=== PATIENT | male | born 1965 | race Caucasian/White ===

== ENCOUNTER 2017-04-04 04:07 | Observation (INO) | payer BC ==
[2017-04-04] MEDS ORDERED: Nitroglycerin TAB 0.4 MG* 0.4 MG TAB SL PRN (04:23)
[2017-04-04] MEDS ORDERED: Aspirin Low Dose CHEW TAB* 81 MG PO ONE (04:23)
[2017-04-04 04:39] LABS: Hematocrit 42 % (42-52); Mean Corpuscular HGB Conc 33 g/dl (31-36); Mean Corpuscular Hemoglobin 30 pg (27-31); Mean Corpuscular Volume 90 fL (80-94); Mean Platelet Volume 8 um3 (7.4-10.4); Red Blood Count 4.66 10^6/ul (4.0-5.4); Red Cell Distribution Width 14 % (10.5-15); White Blood Count 7.4 10^3/ul (3.5-10.8)
[2017-04-04 04:51] LABS: Albumin 4.2 g/dL (3.2-5.2); BUN/Creatinine Ratio 16.1 (8-20); Calcium 9.5 mg/dL (8.6-10.3); EGFR African American 83.7 (>60); EGFR Non-African American 65.1 (>60); Globulin 2.8 g/dL (2-4); Magnesium 1.9 mg/dL (1.9-2.7); Total Bilirubin 0.5 mg/dL (0.2-1.0)
[2017-04-04 05:55] LABS: Potassium 3.8 mmol/L (3.5-5.0)
--- NOTE | 2017-04-04 06:22 | ED ---
I, Oh,Sogini, scribed for Mars Petersen MD on 04/04/17 at 0424 . HPI Chest Pain - HPI Summary HPI Summary: This 52 y/o male presents to ED for midsternal CP since 0200 AM tonight. Positive left arm and shoulder pain since the last morning. ASA and APAP were taken without much relief. PMHx includes HTN and right kidney transplant in 1999. He does not have left kidney. Pt is smoker and daily drinker x3-4. Primary care involves Dr. Tijerina. - History of Current Complaint Hx Obtained From: Patient, Family/Labor Utilization Superintendent - present at bedside, Medical Records Onset/Duration: Started Hours Ago, Atraumatic, Still Present Timing: Constant Chest Pain Location: Diffuse Chest Pain Radiates: No Character: Dull/Aching Aggravating Factor(s): Nothing Alleviating Factor(s): Nothing Associated Signs and Symptoms: Positive: Chest Pain, Other: - LUE shoulder and arm pain - Allergy/Home Medications Allergies/Adverse Reactions: Allergies Allergy/AdvReac Type Severity Reaction Status Date / Time Ibuprofen Allergy Unknown See Comment Verified 04/04/17 04:29 Home Medications: Home Medications Aspirin 81 MG TAB 1 tab PO DAILY 04/04/17 [History Confirmed 04/04/17] PMH/Surg Hx/FS Hx/Imm Hx Endocrine/Hematology History: Denies: Hx Diabetes, Hx Thyroid Disease Cardiovascular History: Reports: Hx Hypertension - controlled Denies: Hx Pacemaker/ICD Respiratory History: Denies: Hx Asthma, Hx Chronic Obstructive Pulmonary Disease (COPD) GI History: Denies: Hx Ulcer History: Reports: Hx Renal Disease - ONLY 1KIDNEY Sensory History: Reports: Hx Hearing Aid Psychiatric History: Denies: Hx Panic Disorder - Surgical History Surgery Procedure, Year, and Place: R kidney transplant 1999, no left kidney; ganglion cyst right wrist Infectious Disease History: Denies: Hx Clostridium Difficile, Hx Hepatitis, Hx Human Immunodeficiency Virus (HIV), Hx of Known/Suspected MRSA, Hx Shingles, Hx Tuberculosis, Hx Known/ Suspected VRE, Hx Known/Suspected VRSA, History Other Infectious Disease - Family History Known Family History: Negative: Diabetes - Social History Alcohol Use: Weekly Alcohol Amount: 1-2 per night, beer Substance Use Type: Reports: None Smoking Status (MU): Never Smoked Tobacco Type: Smokeless Tobacco Amount Used/How Often: one tin every 3 wks Have You Smoked in the Last Year: No Review of Systems Negative: Fever Positive: Chest Pain Positive: Other - LUE shoulder and arm pain All Other Systems Reviewed And Are Negative: Yes Physical Exam Triage Information Reviewed: Yes Vital Signs Reviewed: Yes Appearance: Positive: Well-Appearing, No Pain Distress Skin: Positive: Warm Head/Face: Positive: Normal Head/Face Inspection ENT: Positive: Hearing grossly normal Neck: Positive: Supple Respiratory/Lung Sounds: Positive: Clear to Auscultation, Breath Sounds Present Cardiovascular: Positive: RRR Abdomen Description: Positive: Nontender, Soft Bowel Sounds: Positive: Present Musculoskeletal: Positive: Strength/ROM Intact Neurological: Positive: Sensory/Motor Intact, Alert, Oriented to Person Place, Time, Normal Gait Psychiatric: Positive: Affect/Mood Appropriate Diagnostics - Laboratory Result Diagrams: 04/04/17 04:15 04/04/17 04:15 Lab Statement: Any lab studies that have been ordered have been reviewed, and results considered in the medical decision making process. - Radiology CXR Radiology Interpretation Completed By: ED Physician - See EMR for official reading - EKG 0413 Cardiac Rate: NL EKG Rhythm: Sinus Bradycardia Re-Evaluation - Re-Evaluation First Eval Re-Evaluation Time: 06:35 Change: Improved Comment: MD in room to update pt on plan of care involving admission for further workup such as stress test. Chest Pain Course/Dx - Course Assessment/Plan: This 52 y/o male presents to ED for acute onset of midsternal CP since 0200 AM tonight. Positive LUE shoulder and arm pain since yesterday. Pt recently just established primary care with Dr. Tijerina, but has not done any cardiac workup recently. CXR and EKG are noted normal. Blood work is wnl with 0.00 trop but elevated creatinine of 1.12. Plan of care involving admission and further cardiac workup with stress test is discussed with Dr. Mancini, hospitalist finish production manager, and pt is accepted for admission. - Diagnoses Provider Diagnoses: Chest pain - Provider Notifications Discussed Care Of Patient With: Marquis Mancini Time Discussed With Above Provider: 06:34 Instructed by Provider To: Admit As Inpatient Discharge - Discharge Plan Condition: Fair Disposition: ADMITTED TO [facility] Referrals: Uziel Tijerina MD [Primary Care Provider] - The documentation as recorded by the Richard wylie Soohyun accurately reflects the service I personally performed and the decisions made by me, Mars Petersen MD.
--- NOTE | 2017-04-04 08:00 | RAD ---
HISTORY: Chest pain COMPARISONS: November 04, 2010 VIEWS: 4: Frontal dual-energy and lateral views of the chest. FINDINGS: CARDIOMEDIASTINAL SILHOUETTE: The cardiomediastinal silhouette is normal. LAKEISHA: The lakeisha are normal. PLEURA: The costophrenic angles are sharp. No pleural abnormalities are noted. LUNG PARENCHYMA: The lungs are clear. ABDOMEN: The upper abdomen is clear. There is no subphrenic gas. BONES AND SOFT TISSUES: No bone or soft tissue abnormalities are noted. OTHER: None. IMPRESSION: NO ACTIVE CARDIOPULMONARY DISEASE.
[2017-04-04 08:58] LABS: HDL Cholesterol 58.6 mg/dL
[2017-04-04] MEDS ORDERED: Mycophenolate Mofetil TAB(*) 500 MG PO SCH (09:00)
[2017-04-04] MEDS ORDERED: CHLORPHENIRAMINE PHENYLEPHRINE PO SCH (09:00)
[2017-04-04] MEDS ORDERED: amLODIPine TAB* 5 MG PO SCH (09:00)
[2017-04-04] MEDS ORDERED: [UNRECOGNIZED DRUG - OTHER] PO SCH (09:00)
[2017-04-04] MEDS ORDERED: predniSONE TAB* 5 MG PO SCH (09:00)
[2017-04-04] MEDS ORDERED: Aspirin Low Dose CHEW TAB* 81 MG PO SCH (09:00)
--- NOTE | 2017-04-04 10:05 | HP ---
CC: Dr. Tijerina * HISTORY AND PHYSICAL: DATE OF ADMISSION: 04/04/17 PRIMARY CARE PROVIDER: Dr. Tijerina. CHIEF COMPLAINT: Chest pain. HISTORY OF PRESENT ILLNESS: Mr. Linares is a 52-year-old male who woke up yesterday morning with complaint of left lateral chest pain as well as left arm and shoulder discomfort. He described this as a constant pressure feeling as if somebody had a foot constantly on his chest. He has noted that it felt hard to breathe. He states the pain got better as the day progressed. He mowed his lawn on a riding pediatric speech language pathologist. He worked on his truck. He states that he felt the discomfort the entire day; however, by evening, it was not as bad as it was in the morning. He went to bed at the usual time. He awakened at approximately 2 a.m. and described having severe pain in the left side of the chest. He states he got up, he took some Tylenol and sat on a chair. He notes about an hour later it felt somewhat better; however, he again complained of shortness of breath and numbness and tingling in his arm. He continued to have pressure in his chest. At that point, he asked his girlfriend to bring him to the emergency room. The patient does state that he was on recent vacation. His travel included traveling out to [facility]. He has never had anything like this in the past. He has never had a cardiac workup in the past. PAST MEDICAL HISTORY: 1. History of nephrotic syndrome, status post renal transplant in 1999. 2. Hypertension. PAST SURGICAL HISTORY: 1. Renal transplant. 2. Ganglion cyst removal. MEDICATIONS: 1. Prednisone 5 mg p.o. daily. 2. Amlodipine 10 mg p.o. daily. 3. CellCept 500 mg p.o. b.i.d. 4. Celexa 10 mg p.o. q.h.s. 5. Norel AD 1 tab p.o. b.i.d. 6. Aspirin 81 mg p.o. daily. ALLERGIES: No known drug allergies. FAMILY HISTORY: Mother at the age of 70. She had coronary artery disease , diabetes, kidney disease. Dad at age 65. He had throat cancer. SOCIAL HISTORY: The patient does not smoke cigarettes, but he does use chewing tobacco. He drinks 2 to 3 alcoholic beverages on average per day. 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 He has 2 children. His girlfriend, Jessica, would be his healthcare proxy. REVIEW OF SYSTEMS: A complete 11-system review of systems was obtained. Pertinent positives and negatives are as per HPI and otherwise negative. PHYSICAL EXAMINATION GENERAL: The patient is a well-developed, middle-aged male, lying on a stretcher, in no acute distress. VITAL SIGNS: Blood pressure 110/81, pulse 56, respirations 16, temp 98.3, O2 sat 97% on room air. HEENT: Pupils are equal. They are round. They react to light. Extraocular muscles are intact. Oropharynx is clear. Oral mucosa is moist. The patient does have chewing tobacco in his mouth at this time. There is no submandibular , cervical or supraclavicular adenopathy. Thyroid is not enlarged. No thyroid nodules noted. PULMONARY: Lungs are clear to auscultation bilaterally. CARDIAC: Normal S1, S2. Regular rate and rhythm. I did not appreciate any murmurs. The patient is quite tender to palpation over the left lateral chest wall. ABDOMEN: Bowel sounds are present. Abdomen is soft, nontender, nondistended. The patient's transplanted kidney is in the right lower quadrant. MUSCULOSKELETAL: There is no cyanosis or clubbing of the digits. There is full active range of motion of all 4 extremities. NEUROLOGIC: Cranial nerves II through XII are grossly intact. Sensation is intact to light touch throughout. Strength is 5/5 and symmetric in both upper extremities and lower extremities bilaterally. SKIN: Warm and dry. There are no rashes. PSYCH: The patient is alert. He is oriented x3. Affect appears appropriate. DIAGNOSTIC STUDIES/LAB DATA: WBC 7.4, hemoglobin 14.0, hematocrit 42, platelets 290. INR 0.82. Sodium 137, potassium 3.8, chloride 99, CO2 of 28, BUN 19, creatinine 1.18, glucose 105, lactic acid 0.5. Calcium 9.5, magnesium 1.9, bilirubin 0.5, AST 26, ALT 12, alk phos 67, troponin 0, albumin 4.2. EKG reveals normal sinus rhythm without any acute ST-T wave abnormalities though there is an inverted T-wave in lead III, which is essentially unchanged from 2015. Chest x-ray on my review appears to be clear bilaterally, without any infiltrates or evidence of edema. ASSESSMENT AND PLAN: Mr. Linares is a 52-year-old male with history of renal transplant in 1999, maintained on immunosuppressive therapy, hypertension, and use of chewing tobacco, who presents to the emergency room with complaints of chest pain. 1. Chest pain: My suspicion is that the patient's chest pain is in fact musculoskeletal. He was quite tender to palpation over the left lateral chest wall. He does not recall any trauma to the area, however. The patient's MARILEE risk score, however, is 2. The patient will be admitted, ruled out for an acute coronary syndrome, again, which is unlikely, and then undergo exercise nuclear stress test. The patient is in agreement with this plan. The patient will be n.p.o. as of now. I am hopeful that he can get the stress test later this morning. 2. Hypertension: The patient's blood pressure is under good control on his usual dose of the amlodipine. We will continue this. 3. History of renal transplant: The patient will continue on his usual doses of prednisone, CellCept, and Norel. His girlfriend will bring in his Norel. 4. Deep venous thrombosis prophylaxis. According to the Adult Thrombosis Prophylaxis Risk Factor Assessment Guide, the patient has a total risk factor score of 2, making him moderate risk. He will have ambulation for DVT prophylaxis only as I suspect he will be discharged home later today. 5. Code status is full and, again, the patient indicates his girlfriend, Jessica, is his healthcare proxy. TIME SPENT: Fifty-five minutes were spent admitting this patient. [id number]/[facility] #: [id number] CARLO
--- NOTE | 2017-04-04 14:21 | RAD ---
Edited for charges. Indication: Evaluate for ischemia. Myocardial perfusion scan was performed utilizing 1 day protocol. Rest myocardial perfusion was performed after intravenous injection of 10.6 mCi of technetium 99m tetrofosmin. Treadmill stress study was performed and the maximum heart rate achieved was 92% of the maximum predicted value. 25.7 mCi of technetium 99 and tetrofosmin was then injected. There is homogeneous distribution of the radiotracer throughout the left ventricle. No evidence of fixed or reversible perfusion defect is identified. The ejection fraction at stress is 68 %. Evaluation of wall motion demonstrates no focal wall motion abnormality. IMPRESSION: No definite fixed or reversible perfusion defect is identified. Normal ejection fraction. ASSESSMENT: Low risk Based on imaging criteria from ACC/AHA 2002 Guideline Update for the Management of Patients With Chronic Stable Angina Table 23. Noninvasive Risk Stratification. Reference. MTDD
[2017-04-04 15:32] VITALS: BP 131/85
[2017-04-04] MEDS ORDERED: Citalopram TAB* 10 MG PO SCH (21:00)
--- NOTE | 2017-04-05 06:22 | DS ---
CC: Dr. Tijerina * DISCHARGE SUMMARY: DATE OF ADMISSION: 04/04/17 DATE OF DISCHARGE: 04/04/17 PRIMARY CARE PROVIDER: Dr. Tijerina. ATTENDING PHYSICIAN WHILE IN THE HOSPITAL: Dr. Vani Garrison * (report dictated by Cherelle Pace NP). PRINCIPAL DIAGNOSIS: Chest pain, suspect musculoskeletal in origin. SECONDARY DIAGNOSES: Include: 1. Nephrotic syndrome, status post renal transplant. 2. Hypertension. DISCHARGE MEDICATIONS: Include: 1. Prednisone 5 mg daily. 2. CellCept 500 mg p.o. b.i.d. 3. Amlodipine 10 mg daily. 4. Celexa 10 mg p.o. at bedtime. 5. Norel 1 tablet p.o. b.i.d. 6. Aspirin 81 mg daily. HISTORY OF PRESENTING COMPLAINT AND HOSPITAL COURSE: I refer you to Dr. Garrison' s H and P dictated earlier today. In short, Mr. Linares is a 52-year-old male patient, with history of hypertension, presenting to the ER today with atypical chest pain that got worse with palpitation and taking deep breaths. He recently have a trip to [facility]. He was concerned though because at 2 in the morning he woke up describing having severe pain on the left side of his chest. He took some Tylenol, sat on the chair. The Tylenol actually made the pain better, but he complained of shortness of breath, numbness, and tingling in his arms. He continued to have chest pressure. He went to the ER, was evaluated. There was concern because of his history of hypertension and he did have a mother with coronary artery disease. We were asked to evaluate admission for chest pain. The patient was admitted. He had serial troponins, which were negative. He had a D- dimer, which was 206. In addition to this, he had a negative nuclear stress test done today. He was monitored on telemetry. He did well. He said the discomfort is now gone, except when he takes a deep breath. I suspect that the pain is most likely musculoskeletal because he did rule out. It was felt he was stable for discharge home. He will be discharged for further workup with his primary care provider. PHYSICAL EXAMINATION ON DISCHARGE: Reveals vital signs, blood pressure 131/85, pulse 72, respirations 16, O2 sat 97%, and temperature 97.6. General: At this time, Mr. Linares is a 52-year-old male patient. He appears to be well nourished and well developed. He does not appear to be in any acute distress. HEENT: Head is atraumatic, normocephalic. Eyes: EOMs are intact. Sclerae are anicteric. Neck: Supple. Throat: Oral mucosa appears to be moist. No oropharyngeal erythema. Lungs: Clear to auscultation bilaterally. No wheezes , rales, or rhonchi. Heart: Sounds S1, S2. Regular rate and rhythm. No murmurs, rubs, or gallops. Abdomen: Soft, flat, nontender. Bowel sounds present. Extremities: Pulses 2+ throughout. No peripheral edema. Neurologic: He is awake, alert, and oriented x3. Skin: Grossly intact. LABORATORY DATA: Labs on discharge reveal WBC of 7.4, RBC of 4.66, hemoglobin 14.0, hematocrit of 42, platelet count 290. INR was 0.82. D-dimer was 206. Sodium is 137, potassium 3.8, chloride was 99, bicarb 28, BUN 19, creatinine 1.18, glucose 105, lactate 0.5, calcium 9.5, mag 1.9, total bili 0.5, AST 26, ALT 12. His triglycerides are 105, cholesterol 194, LDL 114, HDL 58. Serial troponins were all 0. DIAGNOSTIC DATA: He did have an EKG done in the Emergency Department, which revealed a normal sinus rhythm with a rate of 62. No ST elevations or T-wave inversions. Compared to a previous EKG, it appears to be similar. He had a chest x-ray in the ED as well, impression: No acute cardiopulmonary disease. He had a nuclear stress test today, which again, impression read low risk and no definite fixed or reversible perfusion defect is identified. EF was 68% at stress. Normal EF. Old medical records reviewed. STATUS DURING HOSPITALIZATION: Observation. This is a complex medical case, I refer you to medical chart for further details. ISSUES TO BE ADDRESSED AT FOLLOWUP: 1. Chest pain: Again, this is most likely musculoskeletal. I did instruct the patient to take Tylenol and to avoid ibuprofen because of the history of kidney transplant. 2. Hyperlipidemia: His cardiovascular risk score is low. He does not require statin at this point. He can follow up with his primary. I did encourage a heart healthy diet, low cholesterol, low fat, and lifestyle modifications. 3. History of renal transplant: Continue meds as prescribed. 4. Hypertension: Continue Norvasc. 5. Issues to return to the hospital include, but are not limited to, chest pain , shortness of breath, fevers, chills, nausea, vomiting, or any other worrisome symptoms. TIME SPENT: Time spent on the discharge was 30 minutes; greater than half the time spent [id number] with the patient going over the discharge plan, the other half of the time was spent in implementing the discharge plan. I did discuss the discharge plan with my attending, Dr. Garrison, he is in agreement. CHERELLE PACE NP [id number]/[facility] #: [id number] CARLO
== END 2017-04-04 18:30 | disposition home or self-care (01) ==
LOC: ED 04:07 → MEDTELE 06:58
PROVIDERS: ADMIT Hospitalist; ATTEND Hospitalist
DX: R07.9 Chest pain, unspecified (principal); R06.02 Shortness of breath; Z94.0 Kidney transplant status; I10 Essential (primary) hypertension; R00.1 Bradycardia, unspecified; Z79.899 Other long term (current) drug therapy; F17.200 Nicotine dependence, unspecified, uncomplicated
CPT/HCPCS: 36415; 71020; 78452; 80053; 80061; 83605; 83735; 84484; 85025; 85379; 85610; 93005; 93017; 99285; A9270-GY; A9502; G0378; J7512

== ENCOUNTER 2018-08-04 16:56 | Emergency (ER) | payer BC ==
[2018-08-04 17:36] VITALS: BP 135/92
--- NOTE | 2018-08-04 18:09 | UC ---
Ear Complaint HPI - HPI Summary HPI Summary: 53 y/o male presents to the urgent care c/o B/l ear swelling s/p pulling his hearing aids w/ tweezers since they were stuck in there about 1 week ago. Since then he hasn't been able to place them back. He he has Hx of hearing deficit. Pt denies fever, dizziness, tinnitus, SOB, ALMENDAREZ, abdominal pain, N/v/d. He thinks something still in his ears. - History of Current Complaint Chief Complaint: UCEar Stated Complaint: EAR COMPLAINT Time Seen by Provider: 08/04/18 18:00 Hx Obtained From: Patient Onset/Duration: Gradual Onset, Lasting Weeks - 1 week, Still Present, Worse Since - yesterday Severity Initially: Mild Severity Currently: Mild Pain Intensity: 1 Pain Scale Used: 0-10 Numeric Aggravating Factors: Other - touch ears Alleviating Factors: Nothing Associated Signs/Symptoms: Positive: Hearing Loss, Foreign Body Sensation - Allergies/Home Medications Allergies/Adverse Reactions: Allergies Allergy/AdvReac Type Severity Reaction Status Date / Time ibuprofen Allergy See Comment Verified 08/04/18 17:37 PMH/Surg Hx/FS Hx/Imm Hx Previously Healthy: Yes GI/ History: Kidney Stones - Surgical History Surgical History: Yes Surgery Procedure, Year, and Place: R kidney transplant 1999, no left kidney; ganglion cyst right wrist - Family History Known Family History: Positive: None - Pt denies FMHX Negative: Diabetes - Social History Occupation: Disabled Lives: With Family Alcohol Use: Occasionally Alcohol Amount: 2-3 week Substance Use Type: None Smoking Status (MU): Former Smoker Type: Smokeless Tobacco Amount Used/How Often: one tin every 3 wks Have You Smoked in the Last Year: No - Immunization History Most Recent Tetanus Shot: UTD Review of Systems All Other Systems Reviewed And Are Negative: Yes Constitutional: Positive: Negative Skin: Positive: Negative Eyes: Positive: Negative ENT: Positive: Ear Ache - BL ear pain and foreign body sensation Respiratory: Positive: Negative Cardiovascular: Positive: Negative Gastrointestinal: Positive: Negative Genitourinary: Positive: Negative Motor: Positive: Negative Neurovascular: Positive: Negative Musculoskeletal: Positive: Negative Neurological: Positive: Negative Psychological: Positive: Negative Is Patient Immunocompromised?: No Physical Exam - Summary Physical Exam Summary: Vital signs: reviewed General: well developed, well nourished male sitting in the examining table w/o any apparent distress Skin: Peggs, warm and dry, no evidence of atopic dermatitis, psoriasis, seborrhea. HEENT: -Head: atraumatic, non tender; no scalp dermatitis. -Eyes: sclera and conjunctiva clear, PERRLA, EOMI -Ears: no pre- or postauricular lymphadenopathy or erythema; B/L exteran ear canal w/ plastic domes from hearing aid, unable to visualize TMs. -Nose/Face: erythematous and edematous nasal mucosa with clear rhinorrhea, no frontal or maxillary sinus tender to palpation. -Mouth/Throat: Mucous membrane moist, posterior pharynx clear, no erythema or exudates. Neck: supple, FROM, nontender, no lymphadenopathy, no meningismus. Chest: Clear to auscultation, normal breath sounds Abd: soft, Bowel sounds active, Nontender. Back: no spinal or CVAT Neuro: A&O x4, GCS 15, no focal neuro deficits, normal behavior for age. Triage Information Reviewed: Yes Vital Signs: Initial Vital Signs Temp 99.2 F 08/04/18 17:30 Pulse 71 08/04/18 17:30 Resp 16 08/04/18 17:30 BP 135/92 08/04/18 17:30 Pulse Ox 98 08/04/18 17:30 Ear Complaint Course/Dx - Course Course Of Treatment: 53 y/o male presents to the urgent care c/o B/l ear swelling s/p pulling his hearing aids w/ tweezers since they were stuck in there about 1 week ago. Since then he hasn't been able to place them back. He he has Hx of hearing deficit. Pt denies fever, dizziness, tinnitus, SOB, ALMENDAREZ, abdominal pain, N/v/d. He thinks something still in his ears. Hx obtained. Pt w / B/L external ear canals w/ plastic domes still in there. Domes remoced w/ alligator forcepts. Pt tolerated well procedure w/o any adversed effect. B/L external ear canals w/ mild erythema and yellowish drainage. Pt Rx Cortisporin otic drops to alleviate symptoms. Pt's BP is elevated today advised to decrease salt in diet, monitor BP and f/u with PCP for further management. Pt advised if not improvement of symptoms to w/u w/ his PCP for further management. D/C instructions explained. pt understood and agreed w/ plan of care. - Differential Dx/Diagnosis Differential Diagnosis/HQI/PQRI: Cerumen Impaction, Otitis Externa, Otitis Media , Perforated TM, Other - ear foreign body Provider Diagnosis: Ear foreign body, Otitis externa of both ears, Elevated BP without diagnosis of hypertension Discharge - Sign-Out/Discharge Documenting (check all that apply): Patient Departure - d/c home All imaging exams completed and their final reports reviewed: No Studies - Discharge Plan Condition: Stable Disposition: HOME Prescriptions: Neomyc/Polym/HC 1% OTIC SUSP* [Cortisporin Otic Susp 1%*] 4 drop BOTH EARS TID # 1 btl Patient Education Materials: Otitis Externa (ED), Ear Foreign Body (ED) Referrals: Uziel Tijerina MD [Primary Care Provider] - 1 Week Additional Instructions: 1-Please apply otic antibiotic on your both ears as directed. both parts of the hearing aid pieces were removed from your external ear canals 2-Take ibuprofen PO after meals for pain. 3-If symptoms do not improve or worsen please f/u with your PCP in 3 days or return to the urgent care for further evaluation and treatment. 4- Your BP is elevated today. please decrease salt in your diet, monitor BP and if it continues to be elevated please f/u with your PCP for further management - Billing Disposition and Condition Condition: STABLE Disposition: Home - Attestation Statements Provider Attestation: I was available for consult. This patient was seen by the [facility]. The patient was not presented to, seen by, or examined by me. -Diana
== END 2018-08-04 18:44 | disposition home or self-care (01) ==
LOC: UCEAST 16:56
DX: T16.2XXA Foreign body in left ear, initial encounter (principal); T16.1XXA Foreign body in right ear, initial encounter; H60.93 Unspecified otitis externa, bilateral; R03.0 Elevated blood-pressure reading, without diagnosis of hypertension; Z88.6 Allergy status to analgesic agent; Z87.891 Personal history of nicotine dependence; X58.XXXA Exposure to other specified factors, initial encounter; Y92.9 Unspecified place or not applicable
CPT/HCPCS: 69200; 99212; G0463